=== PATIENT | female | born 1945 | race Caucasian/White ===

== ENCOUNTER 2023-09-08 06:59 | Day surgery (SDC) | payer OTHER ==
[2023-09-02 14:38] LABS: Absolute Lymphocytes (CBC) 1.9 K/uL (0.7-4.9); Hematocrit 39.6 % (36.0-45.0); MPV 7.9 fL (7.6-11.3); Platelets 349 thou/uL (152-406); RBC Red Blood Cell Count 4.55 M/uL (3.86-4.86)
[2023-09-02 14:55] LABS: Potassium 4.2 mEq/L (3.5-5.1)
--- NOTE | 2023-09-05 11:03 | EKG ---
Test Date: 2023-09-02 Test Time: 15:17:18 [employer]: AFSHAN MEASUREMENT RESULTS: Intervals: Rate: 61 VT: 236 QRSD: 88 QT: 432 QTc: 434 [place]: P: 52 VT: 236 QRS: 2 T: 35 INTERPRETIVE STATEMENTS: Sinus rhythm with 1st degree AV block Moderate voltage criteria for LVH, may be normal variant Borderline ECG Compared to ECG 01/17/2015 09:31:23 Left ventricular hypertrophy now present Sinus bradycardia no longer present Electronically Signed On 09-05-23 10:59:08 HOURLY SIGN LANGUAGE INTERPRETER by Marty Reyes
[2023-09-08] MEDS ORDERED: Ringers Lactate 1,000 ML IV ONE (07:19)
[2023-09-08] MEDS ORDERED: ROCURONIUM 50 MG/5 ML VIAL IV ONE (07:52)
[2023-09-08] MEDS ORDERED: ONDANSETRON 4 MG/2 ML VIAL ONE (07:52)
[2023-09-08] MEDS ORDERED: LIDOCAINE 2% MPF 5 ML VIAL ONE (07:52)
[2023-09-08] MEDS ORDERED: FENTANYL CITR 100 MCG/2 ML ONE (07:52)
[2023-09-08] MEDS ORDERED: propofoL 200 MG/20 ML VIAL IV ONE ×2 (07:52→10:06)
[2023-09-08] MEDS: CEFAZOLIN SODIUM 2 GM/VIAL ONE (08:22)
[2023-09-08] MEDS ORDERED: IBUPROFEN 200 MG TAB PO PRN (08:39)
[2023-09-08] MEDS ORDERED: dexAMETHasone 10 MG/ML VIAL ONE (08:56)
[2023-09-08] MEDS ORDERED: EPHEDRINE SULF 50 MG/ML VIAL ONE (09:09)
[2023-09-08] MEDS: BUPIVACAINE 0.25% PF 30 ML VIAL ONE (09:10)
[2023-09-08] MEDS: CEFAZOLIN SODIUM 1 GM/VIAL ONE (09:10)
[2023-09-08] MEDS ORDERED: GLYCOPYRROLATE 0.2 MG/ML SYR ONE (09:48)
[2023-09-08] MEDS ORDERED: NEOSTIGMINE 1 MG/ML -10 ML VIAL ONE (09:48)
--- NOTE | 2023-09-08 10:33 | P.BOP ---
Preoperative diagnosis: UUI LILIANA (Mixed Incontinence) Postoperative diagnosis: same Primary procedure: Stage 1+2 Interstim w/lead insertion under flouro,neurostimulator insertion Aircraft Mechanic: NONE,NONE Estimated blood loss: min Specimen: none Findings: Rt S3, Rt buttock, all 4 leads strong babs but no toe response Anesthesia: General Complications: None Transferred to: Recovery Room Condition: Good
[2023-09-08] MEDS: HYDROCODONE/APAP 5/325 MG TAB ONE (11:10)
[2023-09-08 11:58] VITALS: BP 133/64; TEMP 97; O2SAT 98
--- NOTE | 2023-09-08 12:11 | OP ---
Date of Procedure: 09/08/2023 Surgeon: Eliana Johnson MD Simulation Engineer: No assistants. Preoperative Diagnosis: Mixed urinary incontinence (LILIANA) and urge urinary incontinence. Postoperative Diagnoses: Mixed urinary incontinence (LILIANA) and urge urinary incontinence. Procedures Performed: Complete InterStim system implantation with incision and implantation of tined quadripolar lead electrodes for S3 foramen with fluoroscopic guidance for needle placement, subcutan eous implantation of sacral nerve neurostimulator and electronic analysis and programming. Estimated Blood Loss: Minimal. Specimens: No specimens. Findings: Right S3 was used. Right buttock pocket was created for the neurostimulator. All 4 leads had strong babs, but no plantar flexion of the toe. The confirmation that this was an S3 was don e both fluoroscopically as well as with testing the needle position in S2 and S4. Anesthesia: General endotracheal. Complication: No complication. Disposition: The patient transferred to the recovery room in a stable condition. Implants: InterStim II neurostimulator and the quadripolar lead wire. Indications: The patient is a 78-year-old lady with the mixed urinary incontinence tested with urody namics, cystoscopy. No evidence of any tumor. No voiding dysfunction significantly. However, signi ficant overactive bladder refractory to therapy with medications first line with dietary changes and time voids. We discussed about the different options including the Botox injections in comparatively to the neurostimulator and the patient was consented for the InterStim procedure. Office PNE was performed and showed good responses at 3.4 milliamps with good relief over 75% relief in her urinary incontinence episodes. Significant relief in the sensation and the frequency was slig htly better. Since the overall response was greater than 50%, I proceeded with offering her a full I nterStim implant for which she was consented. She was brought back to the OR after re-consenting in the preoperative area. Description Of Procedure: She was taken back to OR, placed in supine fashion on the bed. General an esthesia was given. She was placed in a prone position on the operating room table using the OR prot ocol. The pillows were placed under her lower abdomen to flatten the sacrum and under the shins to a llow the toes to dangle freely. The patient was prepped and draped in a sterile fashion using Chlora Prep. The C-arm was draped and moved into AP position to provide fluoroscopic mapping of the sacral region which included marking of the midline sacrum, sacroiliac joint, sciatic notch and foraminal annie rders and the foramina. The C-arm was then moved into lateral position to image the area from the sa cral promontory to the coccyx. Local injection of 1% lidocaine mixed with 1:100,000 epinephrine in 10 cc was given on each side. Pino rface markings were made after identifying the coccyx 9 cm above in the midline at 9, 10, 11 and 12 c m munoz and at 1.5 and 2 cm lateral to the midline were also marked. A foramen needle was then intro duced approximately 2 cm above the sciatic notch and 2 cm lateral to the sacral midline, which is at the 11 cm edmond and attempts were made to get to the S3. This was slightly difficult from here, so we went down 1 cm and tried at 10 cm on both right and left sides. So I was able to place the needle i nto the S3 position. However, there were no responses of either toes or babs here. So, on the ri ght side, the needle was better positioned and another needle entry was made a centimeter superior to this entry point targeting the same foramina. Once I was in here, there was strong babs, but no toes. Clearly on examination of the image on the x-ray, it was S3, however, wanted to make sure that this did not represent S4 and so S2 foramen was entered and after stimulation, there was heel rotati on and there was clearly an S2 response. So, the needles from here was removed. S3 was confirmed, a lthough there was no plantar flexion of the great toe, the bellowing of the perineum was right there using the external test stimulator. The needle stylet was then removed. Bidirectional guide was placed and confirmed fluoroscopically. The foramen needle was removed and the incision was made peripherally to the directional guide throug h the fascial layer. The lead introducer sheath and dilator was placed over the directional guide an d directed into the foramen to ensure that the radial back marker of the lead introducer did not exte nd beyond the anterior edge of the sacrum. The dilator was unlocked and removed along with bidirecti onal guide. The lead was then placed through the introducer sheath to the first white line and the p osition was checked fluoroscopically. The lead was then further introduced until 3 electrodes were v isible below the sacrum. Each electrode was tested for location using the visualization of babs, but there was no plantar flexion of the great toe. All 4 leads had great babs but no plantar flex ion at all. 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 Further incision was made at subcutaneous tissues, posterior to the iliac crest and lateral to the sa mone for buttock pocket. A 5 cm incision was made after injecting with local lidocaine. Blunt disse ction was performed until the gluteal fascia was identified. Hemostasis was achieved and following a sufficient pocket for the neurostimulator was created. The tunneling tool and straw were placed fro m the lead exit site subcutaneously to the incised pocket site. The tunneling tool was removed and t he lead was fed through the straw and pulled out of the pocket side. The lead was cleansed off bodil y fluids and dried. The lead was then inserted into the InterStim II neurostimulator and the metal b ands were aligned and the blue tip clearly visible in the distal portion of the header. The single s et screw was tightened with a hex wrench. The neurostimulator was placed in the subcutaneous pocket and with the etched identification side césar brenna upwards. Excessive lead was wrapped anticlockwise around the neurostimulator. The programming h ead was placed over the implanted neurostimulator in a sterile cover using adequate lead connection t hat parameters were within normal limits. Impedances were confirmed to be within normal limits as we ll. The wounds were irrigated with antibiotic solution and sterile water and closed with the help of 3-0 Vicryl subcutaneous sutures interrupted x3 and 5-0 Monocryl skin sutures. Counts were correct. Inci matthias at the lead site was also closed with the help of 3-0 Vicryl. Steri-Strips were placed. Gauze and 4 x 4's were placed over the incision. EBL was minimal. Transferred to the recovery room in a s atisfactory condition. Using the clinician php programmer, the generator was programmed and the paramete rs entered into the chart. Her family was debriefed about her procedure and the details of it. She has a 3-week followup with a voiding log. She will be discharged home today. VERENA Voice ID: [id number] Report ID: [id number]
--- NOTE | 2023-09-08 15:57 | RAD REPORT ---
EXAM DESCRIPTION: RAD - Fluoroscopy <1 Hour - 09/08/2023 1:20 pm CLINICAL HISTORY: SACRAL NEURO MOD COMPARISON: None available. FINDINGS: Twenty-four Images were sent to PACS, documenting fluoroscopy used during sacral neuro mod ulator placement procedure. No radiologist was available for the procedure, nor will any image interp retation he provided. Please refer to the procedural report for additional details. Fluoroscopy time: 0.8 Minutes. IMPRESSION: Documentation of fluoroscopy utilization as above.
== END 2023-09-08 12:01 | disposition home or self-care (01) ==
LOC: OR 06:59
PROVIDERS: ATTEND Obstetrics & Gynecology
PROC: 0JH73BZ Insertion of Single Array Stimulator Generator into Back Subcutaneous Tissue and Fascia, Percutaneous Approach (ICD-10-PCS; 2023-09-08)
PROC: 01HY3MZ Insertion of Neurostimulator Lead into Peripheral Nerve, Percutaneous Approach (ICD-10-PCS; principal; 2023-09-08 08:00)
DX: N39.46 Mixed incontinence (principal); N32.81 Overactive bladder
CPT/HCPCS: 36415; 76000; 80048; 85025; 93005; C1767; C1778; J0690; J1100; J2001; J2405; J2704; J2710; J3010; J7120